=== PATIENT | male | born 1985 | race Caucasian/White ===

== ENCOUNTER 2018-02-14 11:56 | Day surgery (SDC) | payer OTHER ==
[2018-02-14 13:32] LABS: #Lymphocytes 0.3 thou/uL (1.20-3.40); #Monocytes 0.4 thou/uL (0.11-0.59); #Neutrophils 4.8 thou/uL (1.40-6.50); %Basophils 0.6 % (0.0-1.0); %Eosinophils 0.8 % (0.0-10.0); %Lymphocytes 5.2 % (21.0-51.0); %Monocytes 6.9 % (0.0-10.0); %Neutrophils 86.5 % (42.0-75.0); Hemoglobin 15.4 g/dL (14.0-18.0); Mean Corpuscular HGB CONC 33.7 g/dL (32.0-36.0); Mean Corpuscular Volume 89.1 fL (78.0-98.0); Mean Platelet Volume 7.5 fL (7.4-10.4); Platelet Count 123 thou/uL (130-400); RBC Distribution Width 12.8 % (11.5-14.5); Red Blood Cell (RBC) Count 5.14 mill/uL (4.70-6.10); White Blood Cell (WBC) Count 5.5 thou/uL (4.8-10.8)
[2018-02-14 13:52] LABS: Anion Gap 13 mmol/L (10-20); BUN (Urea Nitrogen) 12 mg/dL (8.9-20.6); Calc. Creatinine Clearance 0 mL/min (70-130); Calcium 9.3 mg/dL (7.8-10.44); Carbon Dioxide 34 mmol/L (22-29); Chloride 93 mmol/L (98-107); Estimated GFR-MDRD Greater than 90; Glucose 158 mg/dL (70-105); Potassium 3.8 mmol/L (3.5-5.1); Sodium 136 mmol/L (136-145)
[2018-02-14] MEDS ORDERED: Midazolam HCl 2 mg/2 ml Vial ONE ×2 (14:13→16:50)
[2018-02-14] MEDS ORDERED: Glycopyrrolate 0.2 MG/ML 5 ML SYRINGE ONE (14:27)
[2018-02-14] MEDS ORDERED: Lidocaine 1% PF 5 ML VIAL ONE (14:27)
[2018-02-14] MEDS ORDERED: Ondansetron HCl/PF 4 MG/2 ML Vial ONE (14:27)
[2018-02-14] MEDS ORDERED: PROPOFOL 200 MG/20 ML VIAL ONE (14:27)
[2018-02-14] MEDS ORDERED: Ketorolac Tromethamine 30 MG/ML VIAL ONE (14:27)
[2018-02-14] MEDS ORDERED: Clindamycin/D5W 900 mg/50 ml Premix Bag ONE (14:30)
[2018-02-14] MEDS ORDERED: Dexamethasone 4 mg/ml Vial ONE (14:31)
[2018-02-14] MEDS ORDERED: Bupivacaine/Epinephrine 0.25% 30 ML VIAL ONE (16:13)
[2018-02-14] MEDS ORDERED: Bacitracin Zinc Ointment 30 gm TUBE ONE (16:13)
[2018-02-14] MEDS ORDERED: Chlorhexidine Gluconate 15 ML UDCUP SSP ONE (16:13)
[2018-02-14] MEDS ORDERED: Fentanyl 100 MCG/2 ML VIAL ONE (16:50)
[2018-02-14] MEDS ORDERED: HYDROmorphone 0.5 MG/0.5 ML SYRINGE ONE (16:50)
[2018-02-14] MEDS ORDERED: Oxymetazoline HCl 0.05% ( 15 ML ) ONE (17:11)
--- NOTE | 2018-02-15 13:42 | OP ---
DATE OF PROCEDURE: 02/14/2018. PREOPERATIVE DIAGNOSES: 1. Bilateral mandibular condylar fractures. 2. Mandibular symphysis fracture. 3. Dentoalveolar fracture involving tooth #21. POSTOPERATIVE DIAGNOSES: 1. Bilateral mandibular condylar fractures. 2. Mandibular symphysis fracture. 3. Dentoalveolar fracture involving tooth #21. PROCEDURES PERFORMED: 1. Open reduction internal fixation of mandibular symphysis fracture. 2. Closed reduction #21 dentoalveolar fracture as well as closed reduction of bilateral mandibular c ondylar fractures. ANESTHESIA: General nasal endotracheal anesthesia. INDICATIONS FOR PROCEDURE: This is a 32-year-old male status post fall down stairs on 02/13/2018 wit h positive loss of consciousness. He was evaluated at the [facility] in [place] and referred to our clinic on 02/14/2018. Radiographic and clinical exam confirmed bilateral mandibular condylar fr actures as well as a mandibular symphysis fracture and displacement of tooth #21, requiring operative intervention under general anesthesia. The risks, benefits, and alternatives of the procedure were discussed in detail with the patient and the patient's mother. Questions were sought and answered. Informed consent was obtained. DESCRIPTION OF PROCEDURE: The patient was met in the preoperative holding area. Again, informed con sent was obtained. The patient was transferred to operating room by Anesthesia nursing and to the OR table where a safety belt was secured. ASA monitor was attached and the patient was noted to have s table vital signs, IV induction by Anesthesia with nasoendotracheal intubation x1 without complicatio n. Endotracheal tube was secured in a standard head wrap fashion. The patient was prepped and drape d in sterile fashion. A timeout was performed. I began the procedure by thoroughly suctioning the oropharynx and a moistened Ray-Viktor throat pack was placed. Approximately 10 mL of 1% lidocaine with 1:100,000 epinephrine was administered as bilatera l inferior alveolar nerve and lingual nerve blocks as well as a local infiltration along the mandibul ar anterior vestibule. Arch bars were placed from first molar to first molar in the maxilla and susan ible using 24 gauge circumdental wires. Then, a Bovie cautery was used for vestibular incision to ex pose the mandibular symphysis with blunt subperiosteal dissection to the inferior border, the symphys is fracture was identified. The patient was placed into maxillomandibular fixation. A 2 mm 4-hole S ynthes plate was shaped to the inferior border of the mandibular symphysis and secured with bicortica l 2.0 nonlocking screws x4. The patient's occlusion was noted to be stable and repeatable. The woun d was copiously irrigated with normal saline. The wound was closed in layers using 3-0 Vicryl and 4- 0 chromic. Also, note that during placement of arch bars, tooth #21 was reduced to its appropriate p osition and secured using circumdental wire to the arch bar. The oropharynx was thoroughly suctioned . The moistened Ray-Viktor throat pack was removed. The patient was placed back into maxillomandibular fixation with bilateral 24 gauge wires. Oropharynx was thoroughly suctioned and the patient was tur katy over to Anesthesia where he was extubated in the room and returned to PACU in stable condition. FLUIDS: See anesthesia records. ESTIMATED BLOOD LOSS: 50 mL DRAINS: None. SPECIMENS: None. COMPLICATIONS: None. COUNTS: Needle and sponge count verified as correct.
== END 2018-02-14 22:15 | disposition home or self-care (01) ==
LOC: SDC 11:56
PROVIDERS: ATTEND Dentist Oral and Maxillofacial Surgery
PROC: 0NSV35Z Reposition Left Mandible with External Fixation Device, Percutaneous Approach (ICD-10-PCS; principal; 2018-02-14)
PROC: 0NST04Z Reposition Right Mandible with Internal Fixation Device, Open Approach (ICD-10-PCS; principal; 2018-02-14)
PROC: 0NST35Z Reposition Right Mandible with External Fixation Device, Percutaneous Approach (ICD-10-PCS; principal; 2018-02-14)
PROC: 0NSV04Z Reposition Left Mandible with Internal Fixation Device, Open Approach (ICD-10-PCS; principal; 2018-02-14)
DX: S02.66XA Fracture of symphysis of mandible, initial encounter for closed fracture (principal); S02.611A Fracture of condylar process of right mandible, initial encounter for closed fracture; S02.612A Fracture of condylar process of left mandible, initial encounter for closed fracture; S02.5XXA Fracture of tooth (traumatic), initial encounter for closed fracture; E11.9 Type 2 diabetes mellitus without complications; I10 Essential (primary) hypertension; G89.29 Other chronic pain; M54.9 Dorsalgia, unspecified; W10.9XXA Fall (on) (from) unspecified stairs and steps, initial encounter; Z79.84 Long term (current) use of oral hypoglycemic drugs; Z79.899 Other long term (current) drug therapy
CPT/HCPCS: 80048; 85025; C1713; J1100; J1170; J1885; J2001; J2250; J2405; J2704; J3010; J3490